=== PATIENT | male | born 1950 | race African-American/Black ===

== ENCOUNTER 2018-11-06 12:36 | Emergency (ER) | payer MEDICARE ==
[~2018-11-06] VITALS: Ht 190.5 cm; Wt 158.8 kg
[~2018-11-06 12:36] MED LIST: ASPIR 8181 MG PO; CARVEDILOL12.5 MG PO; DIGOXIN250 MCG PO; FLOMAX0.4 MG PO; LISINOPRIL5 MG PO; SIMVASTATIN40 MG PO; SPIRONOLACTONE25 MG PO; XARELTO; XARELTO10 MG PO; vitamin D PO; vitamin c PO
--- OUTSIDE RECORDS SUMMARY | 2018-11-06 12:39 | XMS REPORT | Continuity of Care Document ---
Author Author [facility] Interface Address Unknown Phone Unavailable Problems Problem Status Onset Date Classification Date Reported Comments Source Benign hypertensive heart disease with heart failure Active Problem 08/01/2018 Palmer Orellana MD, [place] Angina pectoris, unspecified Active Problem 09/07/2018 Palmer Orellana MD, [place] CHF, chronic systolic Active Diagnosis 09/07/2018 Palmer Orellana MD, [place] Body mass index 40.0-44.9, adult Active Problem 09/07/2018 Palmer Orellana MD, [place] Obstructive sleep apnea (pediatric) Active Problem 09/07/2018 Palmer Orellana MD, [place] Morbid obesity with alveolar hypoventilation Active Problem 09/07/2018 Palmer Orellana MD, [place] Atrial fibrillation- Chronic Active Problem 09/07/2018 Palmer Orellana MD, [place] Hypertensive heart disease with heart failure Active Problem 09/07/2018 Palmer Orellana MD, [place] Pulmonary hypertension due to left heart disease Active Problem 09/07/2018 Palmer Orellana MD, [place] Medications Medication Details Route Status Patient Instructions Ordering Provider Order Date Source Viagra 1 tablet as needed Orally Active 50 MG Orally Once a day [facility] 10/29/2017 Palmer Orellana MD, [place] Viagra 1 tablet as needed Orally Active 25 MG Orally Once a day [facility] 10/29/2017 Palmer Orellana MD, [place] Lisinopril 1 tablet Orally Active 5 MG Orally Once a day [facility] 02/27/2016 Palmer Orellana MD, [place] Lisinopril 1 tablet Orally Active 5 MG Orally Once a day [facility] 02/27/2016 Palmer Orellana MD, [place] Xarelto 1 tablet with food Orally Active 20 mg Orally Once a day [facility] 08/04/2015 Palmer Orellana MD, [place] Xarelto 1 tablet with food Orally Active 20 mg Orally Once a day [facility] 08/04/2015 Palmer Orellana MD, [place] Metoprolol Succinate as directed Orally Active 100 mg Orally daily [facility] 08/04/2015 Palmer Orellana MD, PA Tamsulosin HCl 1 capsule 30 minutes after the same meal each day Orally Active 0.4 MG Orally Once a day Reyna Orellana MD, PA Finasteride 1 tablet Orally Active 5 MG Orally Once a day Reyna Orellana MD, PA Carvedilol 1 tablet Orally Active 12.5 MG Orally twice a day (bid) Reyna Orellana MD, PA Furosemide 1 tablet Orally Active 40 MG Orally Once a day Reyna Orellana MD, PA Spironolactone 1 tablet Orally Active 25 MG Orally Twice a day Reyna Orellana MD, [place] Oxybutynin Chloride 1 tablet Orally Active 5 MG Orally Twice a day Reyna Orellana MD, [place] Digoxin 1 tablet Orally Active 250 MCG Orally Once a day Reyna Orellana MD, PA Digoxin 1 tablet Orally Active 250 MCG Orally Once a day Reyna Orellana MD, [place] Oxybutynin Chloride 1 tablet Orally Active 5 MG Orally Twice a day Reyna Orellana MD, PA Spironolactone 1 tablet Orally Active 25 MG Orally Twice a day Reyna Orellana MD, PA Tamsulosin HCl 1 capsule 30 minutes after the same meal each day Orally Active 0.4 MG Orally Once a day Reyna Orellana MD, PA Finasteride 1 tablet Orally Active 5 MG Orally Once a day Reyna Orellana MD, PA Furosemide 1 tablet Orally Active 40 MG Orally Once a day Reyna Orellana MD, PA Carvedilol 1 tablet Orally Active 12.5 MG Orally twice a day (bid) Reyna Orellana MD, PA Aspir-81 1 tablet Orally Active 81 MG Orally Once a day Reyna Orellana MD, PA Allergies, Adverse Reactions, Alerts Substance Category Reaction Severity Reaction type Status Date Reported Comments Source N.K.D.A. Adverse Reaction Info Not Available Adverse Reaction Active 09/03/2018 Palmer Orellana MD, [place] Immunizations Immunization Date Given Site Status Last Updated Comments Source Results Order Name Results Value Reference Range Date Interpretation Comments Source Vital Signs Vital Sign Value Date Comments Source Weight 350 09/03/2018 Palmer Orellana MD, [place] Heart Rate 69 09/03/2018 Palmer Orellana MD, [place] Diastolic (mm Hg) 75 09/03/2018 Palmer Orellana MD, [place] Systolic (mm Hg) 118 09/03/2018 Palmer Orellana MD, [place] Weight 368 07/31/2018 Palmer Orellana MD, [place] Heart Rate 83 07/31/2018 Palmer Orellana MD, [place] Diastolic (mm Hg) 68 07/31/2018 Palmer Orellana MD, PA Systolic (mm Hg) 132 07/31/2018 Palmer Orellana MD, PA Weight 355 10/29/2017 Palmer Orellana MD, [place] Heart Rate 93 10/29/2017 Palmer Orellana MD, PA Diastolic (mm Hg) 75 10/29/2017 Palmer Orellana MD, PA Systolic (mm Hg) 138 10/29/2017 Palmer Orellana MD, PA Weight 350 04/25/2017 Palmer Orellana MD, PA Heart Rate 87 04/25/2017 Palmer Orellana MD, PA Diastolic (mm Hg) 70 04/25/2017 Palmer Orellana MD, PA Systolic (mm Hg) 147 04/25/2017 Palmer Orellana MD, PA Weight 345 10/19/2016 Palmer Orellana MD, PA Heart Rate 69 10/19/2016 Palmer Orellana MD, PA Diastolic (mm Hg) 65 10/19/2016 Palmer Orellana MD, PA Systolic (mm Hg) 130 10/19/2016 Palmer Orellana MD, PA Weight 350 04/10/2016 Palmer Orellana MD, PA Heart Rate 74 04/10/2016 Palmer Orellana MD, PA Diastolic (mm Hg) 85 04/10/2016 Palmer Orellana MD, PA Systolic (mm Hg) 130 04/10/2016 Palmer Orellana MD, PA Encounters Location Location Details Encounter Type Encounter Number Reason For Visit Attending Provider ADM Date DC Date Status Source Palmer Orellana MD, PA Unknown [id number] 04/10/2016 04/10/2016 Palmer Orellana MD, PA Palmer Orellana MD, PA Unknown [id number] 04/10/2016 04/10/2016 Palmer Orellana MD, [place] Palmer O[place]ana [place], [place] Unknown [id number] 04/10/2016 04/10/2016 Palmer Orellana MD, PA Palmer Orellana MD, PA carotid & arterial dopplers [id number] 04/10/2016 04/10/2016 Palmer Orellana MD, PA Palmer Orellana MD, PA carotid & arterial dopplers [id number] 04/10/2016 04/10/2016 Palmer Orellana MD, PA Palmer Orellana MD, PA Unknown [id number] 04/10/2016 04/10/2016 Palmer Orellana MD, PA Palmer Orellana MD, PA carotid & arterial dopplers [id number] 04/10/2016 04/10/2016 Palmer Orellana MD, PA Palmer Orellana MD, PA cardiac cath [id number] 04/20/2016 04/20/2016 Palmer Orellana MD, PA Palmer Orellana MD, PA cardiac cath [id number] 04/20/2016 04/20/2016 Palmer Orellana MD, PA Palmer Orellana MD, PA Follow-Up [id number] 10/19/2016 10/19/2016 Palmer Orellana MD, PA Procedures Procedure Code Date Perfomer Comments Source
--- OUTSIDE RECORDS SUMMARY | 2018-11-06 12:39 | XMS REPORT ---
Author Author Palmer Orellana Organization [employer] Address Unknown Phone Unavailable Care Team Providers Care Gill Net Stringer Name Role Phone Palmer Orellana CP Unavailable Allergies No Known Allergies Problems Problem Type Condition Code Onset Dates Condition Status Problem Benign hypertensive heart disease with heart failure 402.11 Active Problem Angina pectoris, unspecified I20.9 Active Problem CHF, chronic systolic I50.22 Active Problem Body mass index (BMI) 40.0-44.9, adult Z68.41 Active Problem Obstructive sleep apnea (adult) (pediatric) G47.33 Active Problem Morbid (severe) obesity with alveolar hypoventilation E66.2 Active Problem Atrial fibrillation- Chronic I48.2 Active Problem Hypertensive heart disease with heart failure I11.0 Active Medications No Known Medications Results No Known Results Summary Purpose eClinicalWorks Submission
--- OUTSIDE RECORDS SUMMARY | 2018-11-06 12:40 | XMS REPORT ---
Author Author Palmer Orellana Organization [employer] Address Unknown Phone Unavailable Care Team Providers Care Mixing Tumbler Operator Name Role Phone Palmer Orellana Unavailable Allergies, Adverse Reactions, Alerts Substance Reaction Event Type N.K.D.A. Info Not Available Non Drug Allergy Encounters Encounter Location Date Follow-Up Palmer Orellana MD, PA Oct 19, 2016 Unknown Palmer Orellana MD, [place] April 10, 2016 carotid & arterial dopplers Palmer Orellana MD, PA April 10, 2016 cardiac cath Palmer Orellana MD, [place] April 20, 2016 Problems Problem Type Condition ICD-9 Code Onset Dates Condition Status Assessment Hypertensive heart disease with heart failure I11.0 Active Assessment CHF, chronic systolic I50.22 Active Assessment Atrial fibrillation- Chronic I48.2 Active Assessment Morbid (severe) obesity with alveolar hypoventilation E66.2 Active Assessment Obstructive sleep apnea (adult) (pediatric) G47.33 Active Problem CHF, chronic systolic I50.22 Active Problem Atrial fibrillation- Chronic I48.2 Active Problem Angina pectoris, unspecified I20.9 Active Problem Morbid (severe) obesity with alveolar hypoventilation E66.2 Active Problem Benign hypertensive heart disease with heart failure 402.11 Active Problem Hypertensive heart disease with heart failure I11.0 Active Problem Obstructive sleep apnea (adult) (pediatric) G47.33 Active Medications Medication Code System Code Instructions Start Date End Date Status Dosage Spironolactone [facility] [address]-74 25 MG Orally Twice a day Active 1 tablet Oxybutynin [facility]lor[facility] [address]-78 5 MG Orally Twice a day Active 1 tablet Finasteride [facility] [address]-35 5 MG Orally Once a day Active 1 tablet Lisinopril [facility] [address]-24 5 MG Orally Once a day February 27, 2016 Active 1 tablet Digoxin [facility] [address]-97 250 MCG Orally Once a day Active 1 tablet Xarelto [facility] [address]-17 20 mg Orally Once a day Aug 04, 2015 Active 1 tablet with food Furosemide [facility] [address]-90 40 MG Orally Once a day Active 1 tablet Tamsulosin HCl [facility] [address]-46 0.4 MG Orally Once a day Active 1 capsule 30 minutes after the same meal each day Carvedilol [facility] [address]-19 12.5 MG Orally twice a day (bid) Active 1 tablet Social History Social History Element Qualifiers Date Reported Tobacco Use: . Are you a: former smoker QUIT MORE THAN 30 YEARS AGO Oct 19, 2016 Marital Status: . Single Oct 19, 2016 Do you drink alcohol? . Status: No Oct 19, 2016 Vital Signs Date/Time: Oct 19, 2016 Weight 345 lbs Cardiac Monitoring Heart Rate 69 /min Blood Pressure Diastolic 65 mm Hg Blood Pressure Systolic 130 mm Hg Summary Purpose eClinicalWorks Submission
--- OUTSIDE RECORDS SUMMARY | 2018-11-06 12:40 | XMS REPORT ---
Author Author Palmer Orellana [facility] [employer] Address Unknown Phone Unavailable Care Team Providers Care Transfusion Aide Name Role Phone Palmer Orellana CP Unavailable Allergies, Adverse Reactions, Alerts Substance Reaction Event Type N.K.D.A. Info Not Available Non Drug Allergy Problems Problem Type Condition Code Onset Dates Condition Status Assessment CHF, chronic systolic I50.22 Active Problem Obstructive sleep apnea (adult) (pediatric) G47.33 Active Problem Body mass index (BMI) 40.0-44.9, adult Z68.41 Active Problem Angina pectoris, unspecified I20.9 Active Problem Pulmonary hypertension due to left heart disease I27.22 Active Problem Atrial fibrillation- Chronic I48.2 Active Problem Morbid (severe) obesity with alveolar hypoventilation E66.2 Active Problem Hypertensive heart disease with heart failure I11.0 Active Problem CHF, chronic systolic I50.22 Active Assessment Obstructive sleep apnea (adult) (pediatric) G47.33 Active Assessment Pulmonary hypertension due to left heart disease I27.22 Active Assessment Body mass index (BMI) 40.0-44.9, adult Z68.41 Active Assessment Hypertensive heart disease with heart failure I11.0 Active Assessment Morbid (severe) obesity with alveolar hypoventilation E66.2 Active Assessment Atrial fibrillation- Chronic I48.2 Active Medications Medication Code System Code Instructions Start Date End Date Status Dosage Spironolactone ND 24431128528 25 MG Orally Twice a day Active [address] [facility] 18607737172 12.5 MG Orally twice a day (bid) Active 1 tablet Oxybutynin Chloride ND 03500569372 5 MG Orally Twice a day Active 1 tablet Finasteride ND 63915325509 5 MG Orally Once a day Active 1 tablet Xarelto ND 17632644439 20 mg Orally Once a day Aug 04, 2015 Active 1 tablet with food Digoxin ND 30970252314 250 MCG Orally Once a day Active 1 tablet Furosemide ND 69394313762 40 MG Orally Once a day Active 1 tablet Tamsulosin HCl [facility] 92537096313 0.4 MG Orally Once a day Active 1 capsule 30 minutes after the same meal each day Viagra [facility] 60085787593 50 MG Orally Once a day Oct 29, 2017 Sep 29, 2018 Active 1 tablet as needed Lisinopril [facility] 02047551014 5 MG Orally Once a day February 27, 2016 Active 1 tablet Vital Signs Date/Time: Sep 03, 2018 BMI 43.74 Index Weight 350 lbs Height 6ft 3in in Cardiac Monitoring Heart Rate 69 /min Blood Pressure Diastolic 75 mm Hg Blood Pressure Systolic 118 mm Hg Results No Known Results Summary Purpose eClinicalWorks Submission
--- OUTSIDE RECORDS SUMMARY | 2018-11-06 12:40 | XMS REPORT ---
Author Author Palmer Orellana Organization [employer] Address Unknown Phone Unavailable Care Team Providers Care Compliance Lead Name Role Phone Palmer Orellana CP Unavailable Encounters Encounter Location Date Unknown Palmer Orellana MD, [place] April 10, 2016 carotid & arterial dopplers Palmer Orellana MD, [place] April 10, 2016 cardiac cath Palmer Orellana MD, [place] April 20, 2016 Problems Problem Type Condition ICD-9 Code Onset Dates Condition Status Problem CHF, chronic systolic I50.22 Active Problem Atrial fibrillation- Chronic I48.2 Active Problem Angina pectoris, unspecified I20.9 Active Problem Morbid (severe) obesity with alveolar hypoventilation E66.2 Active Problem Benign hypertensive heart disease with heart failure 402.11 Active Problem Hypertensive heart disease with heart failure I11.0 Active Problem Obstructive sleep apnea (adult) (pediatric) G47.33 Active Social History Social History Element Qualifiers Date Reported Tobacco Use: . Are you a: former smoker QUIT MORE THAN 30 YEARS AGO April 10, 2016 Do you drink alcohol? . Status: No April 10, 2016 Summary Purpose eClinicalWorks Submission
--- OUTSIDE RECORDS SUMMARY | 2018-11-06 12:40 | XMS REPORT ---
Author Author Palmer Orellana Organization [employer] Address Unknown Phone Unavailable Care Team Providers Care Midwife Practitioner Name Role Phone Palmer Orellana CP Unavailable Encounters Encounter Location Date Unknown Palmer Orellana MD, [place] April 10, 2016 carotid & arterial dopplers Palmer Orellana MD, [place] April 10, 2016 Problems Problem Type Condition ICD-9 Code [...]
--- OUTSIDE RECORDS SUMMARY | 2018-11-06 12:40 | XMS REPORT ---
[facility] Address Unknown Phone Unavailable Care Team Providers Care Powdered Sugar Supervisor Name Role Phone Unavailable Unavailable Payers Payer Name Policy Type Policy Number Effective Date Expiration Date Problems This patient has no known problems. Allergies, Adverse Reactions, Alerts Allergy Name Allergy Type Status Severity Reaction(s) Onset Date Inactive Date Treating Clinician Comments No Known Allergies DA Active U 2013 00:00:00 Medications This patient has no known medications.
--- OUTSIDE RECORDS SUMMARY | 2018-11-06 12:40 | XMS REPORT ---
Author Author Palmer Orellana Organization [employer] Address Unknown Phone Unavailable Care Team Providers Care Floating Labor Gang Supervisor Name Role Phone Palmer Orellana CP Unavailable Allergies No Known Allergies Problems Problem Type Condition Code Onset Dates Condition Status Problem Obstructive sleep apnea (adult) (pediatric) G47.33 Active Problem Body mass index (BMI) 40.0-44.9, adult Z68.41 Active Problem Angina pectoris, unspecified I20.9 Active Problem Pulmonary hypertension due to left heart disease I27.22 Active Problem Atrial fibrillation- Chronic I48.2 Active Problem Morbid (severe) obesity with alveolar hypoventilation E66.2 Active Problem Hypertensive heart disease with heart failure I11.0 Active Problem CHF, chronic systolic I50.22 Active Medications Medication Code System Code Instructions Start Date End Date Status Dosage Xarelto [facility] 64197259290 20 mg Orally Once a day Aug 04, 2015 Active 1 tablet with food Digoxin ND 97082098963 250 MCG Orally Once a day Active 1 tablet Viagra ND 67980887528 50 MG Orally Once a day Oct 29, 2017 Sep 29, 2018 Active 1 tablet as needed Oxybutynin Chloride ND 66963121701 5 MG Orally Twice a day Active 1 tablet Lisinopril ND 87414665952 5 MG Orally Once a day February 27, 2016 Active 1 tablet Spironolactone ND 44109921329 25 MG Orally Twice a day Active 1 tablet Tamsulosin HCl ND 61287795701 0.4 MG Orally Once a day Active 1 capsule 30 minutes after the same meal each day Finasteride ND 41728496786 5 MG Orally Once a day Active 1 tablet Furosemide ND 59855435085 40 MG Orally Once a day Active 1 tablet Carvedilol ND 91767761636 12.5 MG Orally twice a day (bid) Active 1 tablet Results No Known Results Summary Purpose eClinicalWorks Submission
--- OUTSIDE RECORDS SUMMARY | 2018-11-06 12:40 | XMS REPORT ---
Author Author Palmer Orellana [facility] e[employer] Address Unknown Phone Unavailable Care Team Providers Care Steel Die Engraver Name Role Phone Palmer Orellana CP Unavailable Allergies, Adverse Reactions, Alerts Substance Reaction Event Type N.K.D.A. Info Not Available Non Drug Allergy Problems Problem Type Condition Code Onset Dates Condition Status Assessment CHF, chronic systolic I50.22 Active Problem Obstructive sleep apnea (adult) (pediatric) G47.33 Active Problem Benign hypertensive heart disease with heart failure 402.11 Active Problem Body mass index (BMI) 40.0-44.9, [...] Instructions Start Date End Date Status Dosage Oxybutynin Chloride ND 29257165049 5 MG Orally Twice a day Active 1 tablet Finasteride ND 59970884492 5 MG Orally Once a day Active 1 tablet Lisinopril ND 16071426952 5 MG Orally Once a day February 27, 2016 Active 1 tablet Carvedilol ND 74580328910 12.5 MG Orally twice a day (bid) Active 1 tablet Tamsulosin HCl ND 91290347551 0.4 MG Orally Once a day Active 1 capsule 30 minutes after the same meal each day Furosemide ND 44284096475 40 MG Orally Once a day Active [address] [facility] 83146034423 250 MCG Orally Once a day Active [address] [facility] 03015741296 50 MG Orally Once a day Oct 29, 2017 Sep 29, 2018 Active 1 tablet as needed Xarelto [facility] 29080285699 20 mg Orally Once a day Aug 04, 2015 Active 1 tablet with food Spironolactone [facility] 12222258325 25 MG Orally Twice a day Active 1 tablet Vital Signs Date/Time: Jul 31, 2018 BMI 45.99 Index Weight 368 lbs Height 6ft 3in in Cardiac Monitoring Heart Rate 83 /min Blood Pressure Diastolic 68 mm Hg Blood Pressure Systolic 132 mm Hg Results No Known Results Summary Purpose eClinicalWorks Submission
--- OUTSIDE RECORDS SUMMARY | 2018-11-06 12:40 | XMS REPORT ---
Author Author Palmer Orellana Organization [employer] Address Unknown Phone Unavailable Care Team Providers Care Manager Of Photography Name Role Phone Palmer Orellana CP Unavailable Allergies, Adverse Reactions, Alerts Substance Reaction Event Type N.K.D.A. Info Not Available Non Drug Allergy Problems Problem Type Condition Code Onset Dates Condition Status Assessment Atrial fibrillation- Chronic I48.2 Active Problem Benign hypertensive heart disease with heart failure 402.11 Active Assessment CHF, chronic systolic I50.22 Active Problem Angina pectoris, unspecified I20.9 Active Problem CHF, chronic systolic I50.22 Active Problem Body mass index (BMI) 40.0-44.9, adult Z68.41 Active Problem Obstructive sleep apnea (adult) (pediatric) G47.33 Active Problem Morbid (severe) obesity with alveolar hypoventilation E66.2 Active Problem Atrial fibrillation- Chronic I48.2 Active Problem Hypertensive heart disease with heart failure I11.0 Active Assessment Body mass index (BMI) 40.0-44.9, adult Z68.41 Active Assessment Morbid (severe) obesity with alveolar hypoventilation E66.2 Active Assessment Obstructive sleep apnea (adult) (pediatric) G47.33 Active Assessment Hypertensive heart disease with heart failure I11.0 Active Medications Medication Code System Code Instructions Start Date End Date Status Dosage Xarelto [facility] [address]-46 20 mg Orally Once a day Aug 04, 2015 Active 1 tablet with food Tamsulosin HCl [facility] [address]-03 0.4 MG Orally Once a day Active 1 capsule 30 minutes after the same meal each day Finasteride [facility] [address]-97 5 MG Orally Once a day Active 1 tablet Carvedilol [facility] [address]-54 12.5 MG Orally twice a day (bid) Active 1 tablet Lisinopril [facility] [address]-67 5 MG Orally Once a day February 27, 2016 Active 1 tablet Furosemide [facility] [address]-20 40 MG Orally Once a day Active 1 tablet Spironolactone [facility] [address]-37 25 MG Orally Twice a day Active 1 tablet Oxybutynin Chloride [facility] [address]-14 5 MG Orally Twice a day Active 1 tablet Digoxin [facility] [address]-19 250 MCG Orally Once a day Active 1 tablet Vital Signs Date/Time: April 25, 2017 BMI 43.74 Index Weight 350 lbs Height 6ft 3in in Cardiac Monitoring Heart Rate 87 /min Blood Pressure Diastolic 70 mm Hg Blood Pressure Systolic 147 mm Hg Results No Known Results Summary Purpose eClinicalWorks Submission
--- OUTSIDE RECORDS SUMMARY | 2018-11-06 12:40 | XMS REPORT ---
Author Author Palmer Orellana [facility] eClinicalWorks Address Unknown Phone Unavailable Care Team Providers Care Lead Fabricator Name Role Phone Palmer Orellana CP Unavailable [...] Instructions Start Date End Date Status Dosage Lisinopril ND 07375731199 5 MG Orally Once a day February 27, 2016 Active 1 tablet Carvedilol ND 96285192588 12.5 MG Orally twice a day (bid) Active 1 tablet Finasteride ND 51100425239 5 MG Orally Once a day Active 1 tablet Viagra ND 34607509356 25 MG Orally Once a day Oct 29, 2017 Active 1 tablet as needed Spironolactone ND 78810525435 25 MG Orally Twice a day Active 1 tablet Digoxin ND 98904546287 250 MCG Orally Once a day Active 1 tablet Oxybutynin Chloride [facility] 27148885877 5 MG Orally Twice a day Active 1 tablet Xarelto [facility] 35016528051 20 mg Orally Once a day Aug 04, 2015 Active 1 tablet with food Tamsulosin HCl [facility] 76112357917 0.4 MG Orally Once a day Active 1 capsule 30 minutes after the same meal each day Furosemide [facility] 58942686930 40 MG Orally Once a day Active 1 tablet Vital Signs Date/Time: Oct 29, 2017 BMI 44.37 Index Weight 355 lbs Height 6ft 3in in Cardiac Monitoring Heart Rate 93 /min Blood Pressure Diastolic 75 mm Hg Blood Pressure Systolic 138 mm Hg Results No Known Results Summary Purpose eClinicalWorks Submission
--- OUTSIDE RECORDS SUMMARY | 2018-11-06 12:40 | XMS REPORT ---
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 Info Not Available Non Drug Allergy Encounters Encounter Location Date Unknown [place], [place] April 10, 2016 Problems Problem Type Condition ICD-9 Code Onset Dates Condition Status Assessment Atrial fibrillation- Chronic I48.2 Active Assessment Angina pectoris, unspecified I20.9 Active Assessment CHF, chronic systolic I50.22 Active Problem CHF, chronic systolic I50.22 Active Problem Atrial fibrillation- Chronic I48.2 Active Problem Angina pectoris, unspecified I20.9 Active Problem Morbid (severe) obesity with alveolar hypoventilation E66.2 Active Problem Benign hypertensive heart disease with heart failure 402.11 Active Problem Hypertensive heart disease with heart failure I11.0 Active Problem Obstructive sleep apnea (adult) (pediatric) G47.33 Active Assessment Morbid (severe) obesity with alveolar hypoventilation E66.2 Active Assessment Obstructive sleep apnea (adult) (pediatric) G47.33 Active Assessment Hypertensive heart disease with heart failure I11.0 Active Medications Medication Code System Code Instructions Start Date End Date Status Dosage Digoxin [facility] [address]-84 250 MCG Orally Once a day Active 1 tablet Finasteride [facility] [address]-71 5 MG Orally Once a day Active 1 tablet Carvedilol [facility] [address]-00 12.5 MG Orally twice a day (bid) Active 1 tablet Metoprolol Succinate Unknown 0 100 mg Orally daily Aug 04, 2015 April 30, 2016 Active as directed Spironolactone [facility] [address]-54 25 MG Orally Twice a day Active 1 tablet Tamsulosin HCl [facility] [address]-41 0.4 MG Orally Once a day Active 1 capsule 30 minutes after the same meal each day Xarelto [facility] [address]-53 20 mg Orally Once a day Aug 04, 2015 Active 1 tablet with food Aspir-81 [facility] [address]-73 81 MG Orally Once a day Active 1 tablet Oxybutynin Chloride [facility] [address]-34 5 MG Orally Twice a day Active 1 tablet Lisinopril [facility] [address]-49 5 MG Orally Once a day February 27, 2016 Active 1 tablet Furosemide [facility] [address]-19 40 MG Orally Once a day Active 1 tablet Social History Social History Element Qualifiers Date Reported Tobacco Use: . Are you a: former smoker QUIT MORE THAN 30 YEARS AGO April 10, 2016 Do you drink alcohol? . Status: No April 10, 2016 Vital Signs Date/Time: April 10, 2016 Weight 350 lbs Cardiac Monitoring Heart Rate 74 /min Blood Pressure Diastolic 85 mm Hg Blood Pressure Systolic 130 mm Hg Summary Purpose eClinicalWorks Submission
--- NOTE | 2018-11-06 14:24 | Diagnostic Imaging Report ---
Examination: CT head without contrast Clinical Indication: Right eye blurry vision. Technique: Transaxial noncontrast images from the skull base through the vertex were obtained. Sagittal and coronal reformatted images were done. Dose modulation, iterative reconstruction, and/or weight based adjustment of the mA/kV was utilized to reduce the radiation dose to as low as reasonably achievable. Comparison: None. Findings: Scalp: No abnormalities. Bones: Intact. No fractures. No blastic or lytic lesions. Brain sulci: Appropriate for patient's age. Ventricles: Normal in size and configuration. No hydrocephalus. . Extra-axial space: No abnormalities. Parenchyma: There are mild confluent areas of low-attenuation within subcortical and periventricular white matter, nonspecific, but could represent microvascular ischemic disease. No masses, hemorrhage, or acute or chronic cortical based vascular insults. Suprasellar region: No abnormalities. Craniocervical junction: The foramen magnum is patent. No Chiari one malformation. Incidental findings: Atherosclerotic calcification of the cavernous and supraclinoid internal carotid arteries. Impression: 1. No acute intracranial finding. 2. Mild chronic microvascular ischemic change. Signed by: Dr. Amanda Williamson M.D. on 11/06/2018 2:20 PM
== END 2018-11-06 15:35 | disposition home or self-care (01) ==
LOC: FSED 12:36
DX: H53.131 Sudden visual loss, right eye (principal); I48.2 Chronic atrial fibrillation; I10 Essential (primary) hypertension; I50.9 Heart failure, unspecified
CPT/HCPCS: 70450; 80053; 82553; 84484; 85025; 85379; 99283